=== PATIENT | female | born 1980 | race Caucasian/White ===

== ENCOUNTER → 2018-03-08 | Outpatient (CLI) | payer OTHER | LOC: FIMAGING 09:46 | PROVIDERS: ATTEND Obstetrics & Gynecology | DX: N83.202 Unspecified ovarian cyst, left side (principal); Z90.79 Acquired absence of other genital organ(s) ==

== ENCOUNTER → 2018-05-25 | Outpatient (CLI) | payer OTHER | LOC: FIMAGING 11:14 | PROVIDERS: ATTEND Obstetrics & Gynecology | DX: R10.2 Pelvic and perineal pain (principal) ==

== ENCOUNTER → 2018-09-16 | Outpatient (CLI) | payer OTHER | LOC: BMCIMAGING 13:48 | PROVIDERS: ATTEND Internal Medicine | DX: M06.4 Inflammatory polyarthropathy (principal) ==

== ENCOUNTER → 2019-03-10 | Outpatient (CLI) | payer OTHER | LOC: FIMAGING 07:10 | PROVIDERS: ATTEND Internal Medicine | DX: N13.2 Hydronephrosis with renal and ureteral calculous obstruction (principal); R03.0 Elevated blood-pressure reading, without diagnosis of hypertension ==

== ENCOUNTER → 2019-03-15 | Outpatient (CLI) | payer OTHER | LOC: FIMAGING 07:13 | PROVIDERS: ATTEND Internal Medicine | DX: R03.0 Elevated blood-pressure reading, without diagnosis of hypertension (principal) ==